=== PATIENT | male | born 2000 | race Caucasian/White ===

== ENCOUNTER 2024-03-07 07:43 | Emergency (ER) | payer OTHER ==
[2024-03-07] MEDS: Sodium Chloride 0.9% 1,000 ML IV SCH (08:03)
[2024-03-07] MEDS: Ondansetron 4 MG/2 ML SDV IVPUSH PRN (08:03)
[2024-03-07] MEDS: Ketorolac 30 MG/ML SDV IVPUSH ONE (08:12)
[2024-03-07] MEDS: Take Home: Ondansetron 4 MG Tab.DIS, 2 Tab Pack PO ONE (09:39)
== END 2024-03-07 09:44 | disposition home or self-care (01) ==
LOC: CC.ED 07:43
DX: R11.2 Nausea with vomiting, unspecified (principal); R00.0 Tachycardia, unspecified; Z88.0 Allergy status to penicillin
CPT/HCPCS: 96361; 96374; 96375; 99283; 99283-25; A9270-GY; J1885; J2405; J7030